=== PATIENT | male | born 1980 | race Caucasian/White ===

== ENCOUNTER → 2017-07-12 | Outpatient (CLI) | payer BC ==
--- NOTE | 2017-07-12 11:29 | XR ---
EXAMINATION TYPE: XR foot complete RT DATE OF EXAM: 07/12/2017 COMPARISON: NONE HISTORY: Plantar pain x3 weeks TECHNIQUE: Two-view right foot FINDINGS: No acute fractures are evident. Joint spaces appear preserved. Soft tissues are unremarkabl e. IMPRESSION: 1. Normal three-view right foot. 2. Follow-up exam can be performed 7-10 days from acute trauma for continued pain.
== END | disposition home or self-care (01) ==
LOC: RADXRYALE 11:13
PROVIDERS: ATTEND Internal Medicine
DX: M79.671 Pain in right foot (principal)

== ENCOUNTER → 2021-09-17 | Outpatient (CLI) | payer OTHER ==
--- NOTE | 2021-09-18 08:17 | XR ---
EXAMINATION TYPE: XR elbow complete RT DATE OF EXAM: 09/17/2021 COMPARISON: None HISTORY: 41-year-old male [id number], right elbow pain TECHNIQUE: 3 views FINDINGS: No elbow joint effusion. No acute fracture, subluxation, or dislocation seen. IMPRESSION: No acute osseous abnormality seen.
== END | disposition home or self-care (01) ==
LOC: RADXRYALE 16:35
PROVIDERS: ATTEND Internal Medicine
DX: M25.521 Pain in right elbow (principal)